=== PATIENT | female | born 1990 | race Caucasian/White ===

== ENCOUNTER 2020-10-15 12:25 | Emergency (ER) | payer OTHER ==
[~2020-10-15] VITALS: Ht 154.9 cm; Wt 83.4 kg
[2020-10-15 12:28] VITALS: BP 139/92
[2020-10-15] MEDS ORDERED: acetaminophen 325mg tablet PO ONE (12:45)
[2020-10-15] MEDS ORDERED: ketorolac trometh inj. 60 MG/2 ML VIAL IM ONE (12:45)
[2020-10-15] MEDS ORDERED: IBUP-1984 PO (13:26)
== END 2020-10-15 13:47 | disposition home or self-care (01) ==
LOC: ER 12:25
DX: M79.641 Pain in right hand (principal); Z87.891 Personal history of nicotine dependence; Z79.899 Other long term (current) drug therapy
CPT/HCPCS: 73130; 96372; 99283; J1885

== ENCOUNTER 2021-03-16 06:09 | Emergency (ER) | payer BC, OTHER ==
[~2021-03-16] VITALS: Ht 154.9 cm; Wt 128.2 kg
[2021-03-16] MEDS ORDERED: AMOX-100 PO (07:28)
[2021-03-16 07:33] VITALS: BP 138/94
== END 2021-03-16 07:56 | disposition home or self-care (01) ==
LOC: ER 06:10 → EEVIPCON 06:10 → ER 07:56
DX: H66.91 Otitis media, unspecified, right ear (principal); Z79.2 Long term (current) use of antibiotics
CPT/HCPCS: 99283

== ENCOUNTER 2021-05-30 11:23 | Emergency (ER) | payer BC, OTHER ==
[~2021-05-30] VITALS: Ht 154.9 cm; Wt 82.4 kg
[2021-05-30 11:40] VITALS: BP 152/90
[2021-05-30] MEDS ORDERED: meclizine 12.5mg tablet PO ONE (12:05)
[2021-05-30] MEDS ORDERED: ondansetron 4mg rapidly disintigrating tab PO ONE (12:05)
[2021-05-30] MEDS ORDERED: MECL-226 PO (13:32)
[2021-05-30] MEDS ORDERED: ONDA4TAB6 PO (13:32)
== END 2021-05-30 13:36 | disposition home or self-care (01) ==
LOC: EEVIPCON 11:25 → ER 11:25
DX: H81.10 Benign paroxysmal vertigo, unspecified ear (principal); R11.0 Nausea; Z79.899 Other long term (current) drug therapy
CPT/HCPCS: 99283; J8597

== ENCOUNTER 2021-06-06 03:32 | Emergency (ER) | payer BC ==
[~2021-06-06] VITALS: Ht 154.9 cm; Wt 79.5 kg
[~2021-06-06 03:32] MED LIST: MECL-226 PO; ONDA4TAB6 PO
[2021-06-06] MEDS ORDERED: ibuprofen 200mg tablet PO ONE (04:25)
[2021-06-06] MEDS ORDERED: ondansetron/PF 4mg/2ml inj IV ONE (04:25)
[2021-06-06] MEDS ORDERED: pantoprazole 40 MG vial IV ONE (04:25)
[2021-06-06] MEDS ORDERED: normal saline 1000ML IV soln IVB ONE ×2 (04:25)
[2021-06-06] MEDS ORDERED: pseudoephedrine 30mg tablet PO ONE (04:25)
[2021-06-06] MEDS ORDERED: benzonatate 100mg capsule PO ONE (04:25)
[2021-06-06 05:37] LABS: HCG SERUM QL NEGATIVE
[2021-06-06 05:44] LABS: ALANINE AMINOTRANSFERASE 13 U/L (12-78); ALBUMIN 4.2 G/DL (3.4-5.0); ALKALINE PHOSPHATASE 85 IU/L (46-116); ANION GAP 12 (8-16); ASPARTATE AMINO TRANSFERASE 16 U/L (10-37); BILIRUBIN,TOTAL 0.3 MG/DL (0.1-1.0); BLOOD UREA NITROGEN 13 MG/DL (7-18); BUN/CREATININE RATIO 13.4 (6.6-38.0); CALCIUM 8.9 MG/DL (8.5-10.1); CHLORIDE 107 MMOL/L (99-107); CREATININE 0.97 MG/DL (0.40-0.90); GLUCOSE 106 MG/DL (70-104); LIPASE 71 U/L (73-393); POTASSIUM 3.6 MMOL/L (3.5-5.1); SODIUM 143 MMOL/L (135-145); TOTAL PROTEIN 8.4 G/DL (6.4-8.2); eGFR 67 ML/MIN
[2021-06-06] MEDS ORDERED: PANT-47 PO (05:50)
[2021-06-06] MEDS ORDERED: ONDA8TAB13 PO (05:50)
[2021-06-06 06:01] LABS: BASOPHILS % (AUTO) 0.2 % (0-1); EOSINOPHILS % (AUTO) 0.4 % (0-6); HEMATOCRIT 39.9 % (35.0-45.0); HEMOGLOBIN 13.7 g/dl (12.0-16.0); LYMPHOCYTES # (AUTO) 0.6 X10'3 (1.1-4.8); LYMPHOCYTES % (AUTO) 7.3 % (21-51); MEAN CORPUSCULAR HEMOGLOBIN 30.3 PG (27.0-31.0); MEAN CORPUSCULAR HGB CONC 34.4 g/dL (33.0-36.5); MEAN CORPUSCULAR VOLUME 88.1 FL (78-98); MEAN PLATELET VOLUME 9.2 FL (7.4-10.4); MONOCYTES % (AUTO) 12.2 % (2-12); NEUTROPHILS # (AUTO) 6.3 X10'3 (1.8-7.7); NEUTROPHILS % (AUTO) 79.9 % (42-75); PLATELET COUNT 274 X10'3 (140-440); RED BLOOD COUNT 4.53 X10'6 (4.20-5.60); RED CELL DISTRIBUTION WIDTH 12.8 % (11.5-14.5); WHITE BLOOD COUNT 7.9 X10'3 (4.5-11.0)
[2021-06-06 06:18] LABS: CLARITY,URINE SLIGHTLY CLOUDY (Clear); GLUCOSE, URINE NEGATIVE (Neg); KETONES,URINE NEGATIVE (Neg); LEUKOCYTE ESTERASE ,URINE NEGATIVE (Neg); NITRITES, URINE NEGATIVE (Neg); OCCULT BLOOD,URINE NEGATIVE (Neg); PROTEIN,URINE NEGATIVE (Neg); UROBILINOGEN,URINE 0.2 E.U/dL (0.2-1.0)
[2021-06-06 06:29] LABS: COLOR,URINE YELLOW (Yellow); RBC,URINE NONE SEEN /HPF (0-2); UA COLLECTION TYPE CLN CATCH MIDSTREAM; WBC,URINE 0-4 /HPF (0-4)
[2021-06-06 06:30] LABS: AMORPHOUS URATES 1+; BACTERIA,URINE 1+ /HPF (Neg); MUCUS STRANDS NONE SEEN /LPF (Neg); SQUAMOUS EPITHELIAL CELL,UR MANY /LPF (FEW)
--- NOTE | 2021-06-06 06:36 | NUR ---
Dr. Vasquez at bedside.
[2021-06-06] MEDS ORDERED: dexamethasone sod phosphate 10mg/ml inj IV STA (06:38)
[2021-06-06] MEDS ORDERED: DEXA6TAB6 PO (07:48)
[2021-06-06] MEDS ORDERED: BUDE180A INH (07:48)
[2021-06-06 09:15] VITALS: BP 116/70
== END 2021-06-06 09:19 | disposition home or self-care (01) ==
LOC: EEVIPCON 03:32 → ER 03:32
DX: B34.9 Viral infection, unspecified (principal); J06.9 Acute upper respiratory infection, unspecified; Z20.822 Contact with and (suspected) exposure to COVID-19
CPT/HCPCS: 36415; 71046; 80053; 81001; 83690; 84703; 85025; 87502; 87503; 87635; 96361; 96374; 96375; 99285; C9113; C9803; J1100; J2405; J7030

== ENCOUNTER 2021-07-18 07:51 | Emergency (ER) | payer BC ==
[~2021-07-18] VITALS: Ht 160 cm; Wt 72.7 kg
[~2021-07-18 07:51] MED LIST changes: +BUDE180A INH; +DEXA6TAB6 PO; -MECL-226 PO; +ONDA8TAB13 PO; +PANT-47 PO
[2021-07-18 08:04] VITALS: BP 131/77
[2021-07-18] MEDS ORDERED: predniSONE 20 mg tablet PO ONE (09:05)
[2021-07-18 09:38] LABS: BASOPHILS % (AUTO) 0.4 % (0-1); EOSINOPHILS # (AUTO) 0.1 X10'3 (0-0.9); EOSINOPHILS % (AUTO) 1.1 % (0-6); HEMATOCRIT 37.9 % (35.0-45.0); LYMPHOCYTES % (AUTO) 22.8 % (21-51); MEAN CORPUSCULAR HEMOGLOBIN 30.6 PG (27.0-31.0); MEAN CORPUSCULAR HGB CONC 34.4 g/dL (33.0-36.5); MEAN PLATELET VOLUME 8.2 FL (7.4-10.4); MONOCYTES % (AUTO) 11.4 % (2-12); NEUTROPHILS # (AUTO) 5.6 X10'3 (1.8-7.7); NEUTROPHILS % (AUTO) 64.3 % (42-75); PLATELET COUNT 323 X10'3 (140-440); RED BLOOD COUNT 4.26 X10'6 (4.20-5.60); RED CELL DISTRIBUTION WIDTH 13.4 % (11.5-14.5); WHITE BLOOD COUNT 8.7 X10'3 (4.5-11.0)
[2021-07-18 09:49] LABS: ALANINE AMINOTRANSFERASE 35 U/L (12-78); ALBUMIN 3.5 G/DL (3.4-5.0); ALBUMIN/GLOBULIN RATIO 0.9 (1.1-1.5); ALKALINE PHOSPHATASE 95 IU/L (46-116); ANION GAP 11 (8-16); ASPARTATE AMINO TRANSFERASE 20 U/L (10-37); BILIRUBIN,TOTAL 0.2 MG/DL (0.1-1.0); BLOOD UREA NITROGEN 15 MG/DL (7-18); BUN/CREATININE RATIO 18.8 (6.6-38.0); CALCIUM 8.7 MG/DL (8.5-10.1); CHLORIDE 103 MMOL/L (99-107); GLUCOSE 107 MG/DL (70-104); POTASSIUM 3.9 MMOL/L (3.5-5.1); SODIUM 138 MMOL/L (135-145); TOTAL PROTEIN 7.2 G/DL (6.4-8.2); eGFR 83 ML/MIN
[2021-07-18] MEDS ORDERED: ipratropium/albuterol 3ml nebule NEB ONE (10:15)
[2021-07-18] MEDS ORDERED: ALBU8HFA PO (10:19)
[2021-07-18] MEDS ORDERED: PRED20TA PO (10:19)
[2021-07-18] MEDS ORDERED: AZIT-103 PO (10:19)
== END 2021-07-18 11:21 | disposition home or self-care (01) ==
LOC: ER 07:51
DX: J20.9 Acute bronchitis, unspecified (principal); Z20.822 Contact with and (suspected) exposure to COVID-19; R05.9 Cough, unspecified; R51.9 Headache, unspecified; Z79.2 Long term (current) use of antibiotics; Z79.899 Other long term (current) drug therapy
CPT/HCPCS: 36415; 71045; 80053; 85025; 87502; 87503; 87635; 94640; 99284; C9803; J7512; 94760; 99285

== ENCOUNTER 2022-01-06 06:56 | Emergency (ER) | payer BC, MEDICAID ==
[~2022-01-06] VITALS: Ht 154.9 cm; Wt 81.8 kg
[2022-01-06 07:07] VITALS: BP 153/96
[2022-01-06] MEDS ORDERED: albuterol 2.5 MG/3 ML nebule NEB ONE (07:30)
[2022-01-06] MEDS ORDERED: TAM75C PO (09:35)
[2022-01-06] MEDS ORDERED: ALBU6.7H9 INH (09:38)
[2022-01-06] MEDS ORDERED: MELO-102 PO (09:38)
== END 2022-01-06 09:57 | disposition home or self-care (01) ==
LOC: ER 06:57
DX: J11.1 Influenza due to unidentified influenza virus with other respiratory manifestations (principal); R05.9 Cough, unspecified; R09.89 Other specified symptoms and signs involving the circulatory and respiratory systems; R50.9 Fever, unspecified; Z79.899 Other long term (current) drug therapy
CPT/HCPCS: 71045; 87502; 87503; 94640; 94760; 99284